=== PATIENT | male | born 2000 | race Hispanic/Latino ===

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

== ENCOUNTER 2024-10-15 13:03 | Emergency (ER) | payer BC ==
[2024-10-15] MEDS ORDERED: Ibuprofen 200 MG TAB ONE (13:49)
== END 2024-10-15 14:40 | disposition home or self-care (01) ==
LOC: NAV ERS 13:03
DX: J06.9 Acute upper respiratory infection, unspecified (principal); B34.9 Viral infection, unspecified; F17.290 Nicotine dependence, other tobacco product, uncomplicated
CPT/HCPCS: 87428; 99283

== ENCOUNTER 2025-03-14 19:40 | Emergency (ER) | payer BC ==
[2025-03-14] MEDS ORDERED: Ipratropium/Albuterol 3 ML NEB ONE (19:59)
[2025-03-14] MEDS ORDERED: methylPREDNISolone Acetate 40 mg/ml Vial ONE (19:59)
== END 2025-03-14 20:35 | disposition home or self-care (01) ==
LOC: NAV ERS 19:40
DX: T78.40XA Allergy, unspecified, initial encounter (principal); J45.909 Unspecified asthma, uncomplicated
CPT/HCPCS: 96372; 99283; J1010; J7620